=== PATIENT | female | born 1990 | race Two or more races ===

== ENCOUNTER 2021-02-15 07:36 | Emergency (ER) | payer OTHER ==
[~2021-02-15] VITALS: Ht 157.5 cm; Wt 50.8 kg
[2021-02-15] MEDS ORDERED: PEPCID AC10 MG (07:53)
[2021-02-15] MEDS ORDERED: PRENA1 TRUE CO1 EACH PO (07:54)
== END 2021-02-15 14:52 | disposition home or self-care (01) ==
LOC: ER 07:36
DX: O26.851 Spotting complicating pregnancy, first trimester (principal); O26.891 Other specified pregnancy related conditions, first trimester; O36.80X0 Pregnancy with inconclusive fetal viability, not applicable or unspecified; Z3A.10 10 weeks gestation of pregnancy

== ENCOUNTER 2024-04-24 08:29 | Emergency (ER) | payer OTHER ==
[~2024-04-24] VITALS: Ht 154.9 cm; Wt 52.2 kg
[~2024-04-24 08:29] MED LIST: PEPCID AC10 MG; PRENA1 TRUE CO1 EACH PO
[2024-04-24] MEDS ORDERED: TAMIFLU45 MG PO (08:47)
[2024-04-24] MEDS ORDERED: ZITHROMAX200 MG PO (08:47)
[2024-04-24] MEDS ORDERED: GILTUSS ALLERG118 ML (08:47)
[2024-04-24] MEDS ORDERED: FAMOTIDINE/PF 20 MG/2 ML VIAL IV PUSH STA (09:09)
[2024-04-24 09:31] LABS: HEMATOCRIT 39.8 % (36.0-45.00); HEMOGLOBIN 13.6 g/dL (12.0-15.00); MEAN CORPUSCULAR HEMOGLOBIN 29.6 pg (27.00-32.0); MEAN CORPUSCULAR HGB CONC 34.1 g/dl (32.0-36.0); PLATELET COUNT 227 K/uL (150-450); RED BLOOD COUNT 4.58 M/uL (4.00-6.00)
[2024-04-24 10:18] LABS: CALCIUM 9.2 mg/dL (8.5-10.1); CREATININE SERUM 0.67 mg/dL (0.55-1.02); POTASSIUM 3.86 mEq/L (3.5-5.1)
== END 2024-04-24 10:59 | disposition home or self-care (01) ==
LOC: ER 08:31
PROVIDERS: General Practice
DX: K29.70 Gastritis, unspecified, without bleeding (principal)